=== PATIENT | male | born 1930 | race Caucasian/White ===

== ENCOUNTER 2016-08-21 08:02 | Day surgery (SDC) | payer OTHER, MEDICARE ==
[~2016-08-21] VITALS: Ht 175.3 cm; Wt 70.4 kg
[~2016-08-21 08:02] MED LIST: AMIODARONE HCL200 MG PO; ELIQUIS5 MG PO; FERREX 150150 MG PO; METOPROLOL TAR100 MG PO; VOL-CARE RX TA1 EACH PO
[2016-08-21 09:35] LABS: HEMATOCRIT 39.2 % (38.0-50.0); MCH 30.4 PG (29.0-34.0); MCHC 31.6 G/DL (30.0-36.0); MCV 96.1 FL (86-99); MEAN PLAT.VOLUME 10.3 uM^3 (9.0-12.4); PLATELET COUNT 179 K/uL (156-360); RBC DIS.WIDTH-CV 16.8 % (11.8-14.6); RBC DIS.WIDTH-SD 58.6 % (39-53); RED BLOOD COUNT 4.08 M/uL (4.00-5.50); WHITE BLOOD COUNT 10.6 K/uL (4.1-10.2)
[2016-08-21 09:56] LABS: ANION GAP 12 MEQ/L (2-14); CHLORIDE 99 MEQ/L (99-109); SAMPLE HEMOLYSIS CHECK 1; SAMPLE ICTERIC CHECK 0; SAMPLE LIPEMIA CHECK 0; SODIUM 139 MEQ/L (136-147)
[2016-08-21 10:00] LABS: POTASSIUM 4.8 MEQ/L (3.7-5.4)
[2016-08-21 10:03] VITALS: BP 180/80
[2016-08-21 10:10] LABS: GFR ESTIMATE (CALCULATED) 11 mL/min/; GLUCOSE 99 mg/dL (70-99); UREA NITROGEN (BUN) 38 mg/dL (9-23)
[2016-08-21 14:03] VITALS: BP 149/65
[2016-08-21 15:20] VITALS: BP 138/63
[2016-08-21 16:00] VITALS: BP 138/68
== END 2016-08-21 16:10 | disposition home or self-care (01) ==
LOC: SDC 08:02
PROVIDERS: Surgery
PROC: 03180JD Bypass Left Brachial Artery to Upper Arm Vein with Synthetic Substitute, Open Approach (ICD-10-PCS; principal; 2016-08-21)
DX: N18.9 Chronic kidney disease, unspecified (principal); Z99.2 Dependence on renal dialysis; E78.5 Hyperlipidemia, unspecified; Z88.5 Allergy status to narcotic agent; F17.200 Nicotine dependence, unspecified, uncomplicated
CPT/HCPCS: 80048; 85027; 93005; C1768; J0690; J1644; J2720; J3010